=== PATIENT | female | born 1945 | race Caucasian/White ===

== ENCOUNTER 2019-11-10 01:18 | Emergency (ER) | payer MEDICARE ==
[2019-11-10] MEDS ORDERED: BENADRYL 50 MG/ML IV ONE (01:21)
[2019-11-10] MEDS ORDERED: Sodium Chloride 0.9% 1000 ML 1,000 ML IV STA (01:21)
[2019-11-10] MEDS ORDERED: MORPHINE SULFATE 2 MG INJ IV ONE (01:21)
[2019-11-10] MEDS ORDERED: Inapsine 5 MG/2 ML IV ONE (01:21)
[2019-11-10] MEDS ORDERED: MORPHINE SULFATE 2 MG INJ ONE (01:28)
[2019-11-10] MEDS ORDERED: Inapsine 5 MG/2 ML ONE (01:28)
[2019-11-10] MEDS ORDERED: BENADRYL 50 MG/ML ONE (01:28)
[2019-11-10] MEDS ORDERED: Sodium Chloride 0.9% 1000 ML 1,000 ML ONE (01:28)
--- NOTE | 2019-11-10 01:29 | ERPHSYRPT ---
- History of Present Illness Time Seen by Provider: 11/10/19 01:20 Source: patient, EMS Exam Limitations: no limitations Physician History: Patient is here complaining of bilateral leg pain. She states her pain started suddenly approximately 1 hour ago. It is bilateral. She describes no weakness. However, she does describe some upper body numbness. She has some feelings of paresthesias without motor deficit. She has no falls or trauma. Patient is coming from a [place]. She denies any chest pain or shortness of breath. She denies any recent fever, nausea, vomiting. Patient does state that she had a cough on the way and once that she went out to the cold weather. Timing/Duration: today Severity: mild Allergies/Adverse Reactions: No Known Drug Allergies Allergy (Unverified 11/10/19 01:59) Home Medications: Bupropion HCl [Bupropion HCl ER] 150 mg PO BID 11/10/19 [History] Ferrous Sulfate 325 mg PO TID 11/10/19 [History] Fluoxetine HCl 80 mg PO DAILY 11/10/19 [History] Hydrocodone/APAP 5-325 Tab^^^ [[place] 5-325 Tablet^^^] 5 - 325 mg PO Q4H PRN PRN 11/10/19 [History] Lorazepam 0.5 mg [Ativan 0.5 MG] 0.5 mg PO Q4H PRN PRN 11/10/19 [History] Nicotine 21 mg [Nicoderm CQ 21 MG] 21 mg TD DAILY 11/10/19 [History] Omeprazole 20 mg PO DAILY 11/10/19 [History] Polyethylene Glycol 3350 [Clearlax] 17 gm PO DAILY 11/10/19 [History] raNITIdine HCl [Zantac] 150 mg PO BID 11/10/19 [History] Travel Risk - International Travel Have you traveled outside of the country in past 3 weeks: No Have you or anyone close to you been diagnosed with or: No Do your reside in a community with a known COVID-19 case?: No - Coronavirus Screening Has patient experienced Coronavirus symptoms: No - Review of Systems Constitutional: No Fever, No Chills Eyes: No Symptoms Ears, Nose, & Throat: No Symptoms Respiratory: No Cough, No Dyspnea Cardiac: No Chest Pain, No Edema, No Syncope Abdominal/Gastrointestinal: No Abdominal Pain, No Nausea, No Vomiting, No Diarrhea Genitourinary Symptoms: No Dysuria Musculoskeletal: Other (Bilateral leg pain with upper extremities paresthesias.) , No Back Pain, No Neck Pain Skin: No Rash Neurological: No Dizziness, No Focal Weakness, No Sensory Changes Psychological: No Symptoms Endocrine: No Symptoms All Other Systems: Reviewed and Negative - Nursing Vital Signs Nursing Vital Signs: Initial Vital Signs Temperature 97.8 F 11/10/19 01:21 Pulse Rate 85 11/10/19 01:21 Respiratory Rate 20 11/10/19 01:21 Blood Pressure 151/81 11/10/19 01:21 O2 Sat by Pulse Oximetry 99 11/10/19 01:21 Pain Scale Pain Intensity [Right Lower] 10 Pain Intensity [Left Lower] 10 Pain Intensity 10 - Physical Exam General Appearance: no apparent distress, alert Eye Exam: PERRL/EOMI, eyes nml inspection Ears, Nose, Throat Exam: normal ENT inspection, TMs normal, pharynx normal, moist mucous membranes Neck Exam: normal inspection, non-tender, supple, full range of motion Respiratory Exam: normal breath sounds, lungs clear, No respiratory distress Cardiovascular Exam: regular rate/rhythm, normal heart sounds, normal peripheral pulses Gastrointestinal/Abdomen Exam: soft, normal bowel sounds, No tenderness, No mass Back Exam: normal inspection, normal range of motion, No CVA tenderness, No vertebral tenderness Extremity Exam: normal inspection, normal range of motion, pelvis stable Neurologic Exam: alert, oriented x 3, cooperative, normal mood/affect, nml cerebellar function, nml station & gait, sensation nml, No motor deficits Skin Exam: normal color, warm, dry, No rash Lymphatic Exam: No adenopathy SpO2 Interpretation: normal Comments: 11/10/19 01:29 Motor: There is no pronator drift of out-stretched arms. Muscle bulk and tone are normal. Strength is full bilaterally. Reflexes: Reflexes are 2+ and symmetric at the biceps, triceps, knees, and ankles. Plantar responses are flexor. Sensory: Light touch sense are intact in bilateral upper and lower extremities. There is no sign of neglect. Coordination: Rapid alternating movements are intact. There is no dysmetria on [id number] and [id number]. There are no abnormal or extraneous movements. Romberg is absent. Gait/Stance: Posture is normal. Gait is steady with normal steps, base, arm swing, and turning. Heel and toe walking are normal. Tandem gait is normal. Mental status:The patient is alert, attentive, and oriented. Speech: clear and fluent with good repetition, comprehension, and naming. Ordered Tests: Active Orders 24 hr Category Date Time Status EKG-ER Only STAT Care 11/10/19 01:21 Active IV Insertion STAT Care 11/10/19 01:21 Active CHEST 1 VIEW (PORTABLE) Stat Exams 11/10/19 01:22 Taken CBC W DIFF Stat Lab 11/10/19 02:03 Completed CMP Stat Lab 11/10/19 02:03 Completed Manual Differential NC Stat Lab 11/10/19 02:03 Completed TROPONIN Q3H Lab 11/10/19 02:03 Received TROPONIN Q3H Lab 11/10/19 04:30 Ordered TROPONIN Q3H Lab 11/10/19 07:30 Ordered TROPONIN Q3H Lab 11/10/19 10:30 Ordered TROPONIN Q3H Lab 11/10/19 13:30 Ordered Medication Summary Discontinued Medications Generic Name Dose Route Start Last Admin Trade Name Freq PRN Reason Stop Dose Admin Diphenhydramine HCl 25 mg 11/10/19 01:21 11/10/19 01:38 Benadryl 50 Mg/Ml IV 11/10/19 01:22 25 mg STAT ONE Administration Diphenhydramine HCl Confirm 11/10/19 01:28 Benadryl 50 Mg/Ml Administered 11/10/19 01:29 Dose 50 mg .ROUTE .STK-MED ONE Droperidol 1.25 mg 11/10/19 01:21 11/10/19 01:37 Inapsine 5 Mg/2 Ml IV 11/10/19 01:22 1.25 mg STAT ONE Administration Droperidol Confirm 11/10/19 01:28 Inapsine 5 Mg/2 Ml Administered 11/10/19 01:29 Dose 5 mg .ROUTE .STK-MED ONE Sodium Chloride 1,000 mls @ 999 mls/hr 11/10/19 01:21 11/10/19 01:38 Sodium Chloride 0.9% 1000 Ml IV 11/10/19 02:21 999 mls/hr .Q1H1M STA Administration Sodium Chloride Confirm 11/10/19 01:28 Sodium Chloride 0.9% 1000 Ml Administered 11/10/19 01:29 Dose 1,000 mls @ ud .ROUTE .STK-MED ONE Morphine Sulfate 2 mg 11/10/19 01:21 11/10/19 01:37 Morphine Sulfate 2 Mg Inj IV 11/10/19 01:22 2 mg STAT ONE Administration Morphine Sulfate Confirm 11/10/19 01:28 Morphine Sulfate 2 Mg Inj Administered 11/10/19 01:29 Dose 2 mg .ROUTE .STK-MED ONE Lab/Rad Data: Laboratory Result Diagrams 11/10/19 02:03 11/10/19 02:03 Laboratory Results 11/10/19 11/10/19 Range/Units 02:03 02:03 WBC 11.3 H (4.0-10.5) K/mm3 RBC 4.02 L (4.1-5.4) M/mm3 Hgb 8.3 L (12.0-16.0) gm/dl Hct 29.4 L (35-47) % MCV 73.1 L (78-100) fl MCH 20.6 L (26-32) pg MCHC 28.2 L (32-36) g/dl RDW 19.4 H (11.5-14.0) % Plt Count 504 H (150-450) K/mm3 MPV 8.5 (7.5-11.0) fl Sodium 139 (137-145) mmol/L Potassium 3.7 (3.5-5.1) mmol/L Chloride 104 (98-107) mmol/L Carbon Dioxide 26 (22-30) mmol/L Anion Gap 12.7 (5-15) MEQ/L BUN 18 H (7-17) mg/dL Creatinine 0.68 (0.52-1.04) mg/dL Estimated GFR > 60.0 ML/MIN Glucose 89 (74-106) mg/dL Calcium 9.2 (8.4-10.2) mg/dL Total Bilirubin 0.50 (0.2-1.3) mg/dL AST 20 (14-36) U/L ALT 9 (0-35) U/L Alkaline Phosphatase 127 H (38-126) U/L Serum Total Protein 7.8 (6.3-8.2) g/dL Albumin 3.6 (3.5-5.0) g/dL - Progress Progress: improved Progress Note: 11/10/19 01:29 Lower suspicion for stroke given normal neurological exam. Patient also has no focal symptoms on history or physical. Will obtain basic labs. - We'll obtain basic labs, fluids, EKG, troponin, chest x-ray - I feel comfortable with one time negative troponin given symptoms have improved and started greater then 6 hours ago. - EKG shows no ST changes - my read. See full read below. - O2 saturations consistently greater than 95%. - CXR shows no pneumonia, pneumothorax - my read - no other obvious lab abnormalities 11/10/19 02:34 Overall patient feels improved. No obvious lab abnormalities. Patient is now resting comfortably in the room. Unclear cause for patient's symptoms. This point time we will discharge patient home. She will need close follow-up with PCP. Should return here for new or changing symptoms. - Departure Departure Disposition: Home Clinical Impression: Bilateral leg pain Condition: Stable Critical Care Time: No Referrals: ERNA SIMMONS DO [Primary Care Provider] - Instructions: Chronic Pain (DC)
[2019-11-10 02:02] LABS: Hematocrit 29.4 % (35-47); Hemoglobin 8.3 gm/dl (12.0-16.0); Mean Cell Volume 73.1 fl (78-100); Mean Corpuscular Hemoglobin 20.6 pg (26-32); Mean Corpuscular Hgb Concent. 28.2 g/dl (32-36); Mean Platelet Volume 8.5 fl (7.5-11.0); Platelet Count 504 K/mm3 (150-450); Red Blood Count 4.02 M/mm3 (4.1-5.4); Red Cell Distribution Width 19.4 % (11.5-14.0); White Blood Count 11.3 K/mm3 (4.0-10.5)
[2019-11-10 02:12] LABS: ALBUMIN 3.6 g/dL (3.5-5.0); ALKALINE PHOSPHATASE 127 U/L (38-126); ANION GAP 12.7 MEQ/L (5-15); BLOOD UREA NITROGEN 18 mg/dL (7-17); CHLORIDE 104 mmol/L (98-107); Calcium 9.2 mg/dL (8.4-10.2); Carbon Dioxide 26 mmol/L (22-30); Creatinine 1 0.68 mg/dL (0.52-1.04); Glucose 89 mg/dL (74-106); Potassium 3.7 mmol/L (3.5-5.1); SGOT/AST 20 U/L (14-36); SGPT/ALT 9 U/L (0-35); SODIUM 139 mmol/L (137-145); Total Protein 7.8 g/dL (6.3-8.2)
[2019-11-10 02:42] LABS: Basophil 1 % (0.0-1.0); Eosinophil 5 % (0.00-3.0); Hypochromia 1+; Lymphocytes 14 % (24-44); Monocyte 14 % (0.0-12.0); Neutrophils 66 % (36.0-66.0); Platelet Estimate NORMAL (NORMAL); Polychromasia RARE; Total Cells Counted 100; Toxic Granulation RARE
[2019-11-10 06:10] VITALS: BP 131/65; PULSE 73; O2SAT 95
[2019-11-10] MEDS ORDERED: Norco 10/325 MG Tablet PO ONE (06:48)
[2019-11-10] MEDS ORDERED: Norco 10/325 MG Tablet ONE (06:49)
--- NOTE | 2019-11-10 08:05 | XRAY ---
Indication: Confusion. Pneumonia. Comparison: None Portable chest demonstrates prominent interstitial lung markings and mild bibasilar infiltrates/atelectasis. Left base nipple shadow. No consolidation, large effusion, or pneumothorax. Heart is not enlarged for AP portable technique. Descending aorta slightly tortuous. Bony thorax intact with mild osteopenia and degenerative changes. Impression: 1. Bibasilar infiltrates/atelectasis. Correlate clinically. 2. Prominent interstitial lung markings probably chronic. Comparison studies would be of benefit. Comment: Preliminary interpretation was made by [facility]. No critical discrepancy.
== END 2019-11-10 08:14 | disposition home or self-care (01) ==
LOC: ED 01:18
DX: M79.662 Pain in left lower leg (principal); M79.661 Pain in right lower leg
CPT/HCPCS: 36000; 36415; 71045; 80053; 84484; 85025; 93005; 96360; 96374; 96375; 99284; J1200; J2270; A9270-GY